=== PATIENT | female | born 1985 | race Caucasian/White ===

== ENCOUNTER 2018-06-19 12:33 | Emergency (ER) | payer MEDICAID ==
[2018-06-19 12:36] VITALS: BMI 22.6
[2018-06-19 12:37] VITALS: BP 133/85; PULSE 79; RESP 17; TEMP 98.6; O2SAT 98
[2018-06-19] MEDS ORDERED: Acetaminophen 160 mg/5 ml UD ONE (13:07)
[2018-06-19 13:21] LABS: INFLUENZA A B NEGATIVE FOR FLU A/B (NEGATIVE)
--- NOTE | 2018-06-19 14:05 | ED PDOC ---
Arrival/HPI - General Chief Complaint: Flu-like Symptoms Time Seen by Provider: 06/19/18 12:41 Historian: Patient - History of Present Illness Narrative History of Present Illness (Text): 06/19/18 12:43 33 year old female, with no significant past medical history, who presents to the Emergency department complaining of flu-like symptoms since 2 days ago. Pt reports runny nose, coughing, congestion, sore throat, and body aches. Patient denies any nausea, vomiting, diarrhea, or any other complaints. PMD: none. Time/Duration: > week (pt notes onset as 2 days ago ) Symptom Onset: Sudden Symptom Course: Unchanged Activities at Onset: Light Past Medical History - Provider Review Nursing Documentation Reviewed: Yes - Infectious Disease Hx of Infectious Diseases: None - Psychiatric Hx Substance Use: No Family/Social History - Physician Review Nursing Documentation Reviewed: Yes Family/Social History: No Known Family HX Smoking Status: Never Smoked Hx Alcohol Use: No Hx Substance Use: No Allergies/Home Meds Allergies/Adverse Reactions: Allergies No Known Allergies Allergy (Verified 06/19/18 12:36) Review of Systems - Physician Review All systems were reviewed & negative as marked: Yes - Review of Systems Constitutional: Other (pt notes body aches ). absent: Normal ENT: Sore Throat (pt notes sore throat ), Rhinorrhea (pt notes rhinorrhea ), Other (pt notes congestion ). absent: Normal Respiratory: Cough (pt notes cough ). absent: Normal Gastrointestinal: Normal. absent: Diarrhea, Vomiting Physical Exam Vital Signs Reviewed: Yes Vital Signs Temp Pulse Resp BP Pulse Ox 06/19/18 12:36 98.6 F 79 17 133/85 98 Temperature: Afebrile Blood Pressure: Normal Pulse: Regular Respiratory Rate: Normal Appearance: Positive for: Well-Appearing, Non-Toxic Pain Distress: None Mental Status: Positive for: Alert and Oriented X 3 - Systems Exam Head: Present: Atraumatic, Normocephalic Pupils: Present: PERRL Extroacular Muscles: Present: EOMI Conjunctiva: Present: Normal Mouth: Present: Moist Mucous Membranes Pharnyx: Present: ERYTHEMA. No: Normal Neck: Present: Normal Range of Motion Respiratory/Chest: Present: Clear to Auscultation, Good Air Exchange. No: Respiratory Distress, Accessory Muscle Use Cardiovascular: Present: Regular Rate and Rhythm, Normal S1, S2. No: Murmurs Abdomen: No: Tenderness, Distention, Peritoneal Signs Back: Present: Normal Inspection Upper Extremity: Present: Normal Inspection. No: Cyanosis, Edema Lower Extremity: Present: Normal Inspection. No: Edema Neurological: Present: GCS=15, CN II-XII Intact, Speech Normal Skin: Present: Warm, Dry, Normal Color. No: Rashes Psychiatric: Present: Alert, Oriented x 3, Normal Insight, Normal Concentration Medical Decision Making ED Course and Treatment: 06/19/18 12:43 Impression: 33 year old female who presents to the Emergency department complaining of flu-like symptoms since 2 days ago. Differential Diagnosis included but are not limited to: Plan: -- Tylenol 325 mg Tab PO -- Throat culture -- Rapid Flu A/B [Influenza A B] -- Rapid strep group a antigen -- Reassess and disposition Progress Notes: 06/19/18 17:29 vitals stable labs neg. will treat for concern for influenza, speaking fulls entences lungs cta. - Lab Interpretations Lab Results: Lab Results 06/19/18 12:44: Influenza Typ A,B (EIA) Negative for flu a/b, Grp A Beta Strep Ag Negative - Medication Orders Current Medication Orders: Discontinued Medications Acetaminophen (Tylenol 325mg Tab) 975 mg PO STAT STA Stop: 06/19/18 12:52 Last Admin: 06/19/18 13:04 Dose: 975 mg VIDAL Pain/Vitals Document 06/19/18 13:04 JOIE (Rec: 06/19/18 13:04 JOIE [facility] [place]-ER-20) Pain Reassessment Is This A Pain ReAssessment? No Sleep Is patient sleeping during reassessment? No Presence of Pain Presence of Pain No - Scribe Statement The provider has reviewed the documentation as recorded by the Scribe Lisa Damico All medical record entries made by the Scribe were at my direction and personally dictated by me. I have reviewed the chart and agree that the record accurately reflects my personal performance of the history, physical exam, medical decision making, and the department course for this patient. I have also personally directed, reviewed, and agree with the discharge instructions and disposition. Disposition/Present on Arrival - Present on Arrival Any Indicators Present on Arrival: No History of DVT/PE: No History of Uncontrolled Diabetes: No Urinary Catheter: No History of Decub. Ulcer: No History Surgical Site Infection Following: None - Disposition Have Diagnosis and Disposition been Completed?: Yes Diagnosis: Viral syndrome Disposition: HOME/ ROUTINE Disposition Time: 05:30 Condition: STABLE Discharge Instructions (ExitCare): Viral Syndrome (DC) Additional Instructions: return to er with worsening symptoms or concerns. Prescriptions: Oseltamivir Phosphate [Tamiflu] 75 mg PO BID #10 capsule Referrals: [facility]iaison [facility] [Outside] - Follow up with primary [facility] at [facility] [place] [Outside] - Follow up with primary Forms: [email or web address] (Malay)
== END 2018-06-19 14:11 | disposition home or self-care (01) ==
LOC: ED 12:33
DX: B34.9 Viral infection, unspecified (principal)